=== PATIENT | female | born 1940 | race Caucasian/White ===

== ENCOUNTER 2019-06-29 10:25 | Inpatient (IN) | payer MEDICARE ==
[~2019-06-29] VITALS: Ht 157.5 cm; Wt 40.0 kg
[2019-06-29] MEDS ORDERED: ipratropium/albuterol 3ml nebule NEB ONE (10:55)
[2019-06-29] MEDS ORDERED: methylPREDNISolone sod succ 125mg/2ml vial IV ONE (10:55)
[2019-06-29 11:07] LABS: BASOPHILS # (AUTO) 0.1 X10'3 (0-0.2); BASOPHILS % (AUTO) 1.2 % (0-1); EOSINOPHILS # (AUTO) 0.3 X10'3 (0-0.9); EOSINOPHILS % (AUTO) 3.4 % (0-6); LYMPHOCYTES # (AUTO) 1.2 X10'3 (1.1-4.8); LYMPHOCYTES % (AUTO) 12.8 % (21-51); MEAN CORPUSCULAR HEMOGLOBIN 35.8 PG (27.0-31.0); MEAN CORPUSCULAR HGB CONC 34.3 g/dL (33.0-36.5); MEAN CORPUSCULAR VOLUME 104.5 FL (78-98); MEAN PLATELET VOLUME 7.8 FL (7.4-10.4); MONOCYTES % (AUTO) 10.7 % (2-12); NEUTROPHILS # (AUTO) 6.9 X10'3 (1.8-7.7); NEUTROPHILS % (AUTO) 71.9 % (42-75); PLATELET COUNT 423 X10'3 (140-440); RED BLOOD COUNT 3.63 X10'6 (4.20-5.60); RED CELL DISTRIBUTION WIDTH 15.1 % (11.5-14.5); WHITE BLOOD COUNT 9.5 X10'3 (4.5-11.0)
[2019-06-29 11:18] LABS: PARTIAL THROMBOPLASTIN TIME 27 SECONDS (22-32)
[2019-06-29 11:25] LABS: ALANINE AMINOTRANSFERASE 27 U/L (12-78); ALBUMIN 3.8 G/DL (3.4-5.0); ALBUMIN/GLOBULIN RATIO 0.8 (1.1-1.5); ALKALINE PHOSPHATASE 77 IU/L (46-116); ANION GAP 8 (8-16); ASPARTATE AMINO TRANSFERASE 37 U/L (10-37); BILIRUBIN,TOTAL 0.5 MG/DL (0.1-1.0); BLOOD UREA NITROGEN 28 MG/DL (7-18); BUN/CREATININE RATIO 39.4 (6.6-38.0); CHLORIDE 102 MMOL/L (99-107); CREATININE 0.71 MG/DL (0.40-0.90); GLUCOSE 113 MG/DL (70-104); POTASSIUM 3.7 MMOL/L (3.5-5.1); SODIUM 143 MMOL/L (135-145); TOTAL CARBON DIOXIDE 32.6 MMOL/L (24-32); TOTAL PROTEIN 8.3 G/DL (6.4-8.2); eGFR 80 ML/MIN
--- NOTE | 2019-06-29 11:51 | NUR ---
DAUGHTER IDALMIS MARSHALL. SHE LIVES OUT OF TOWN IN [place]. # .
[2019-06-29 12:11] LABS: ABG BASE EXCESS 4.4 mmol/L (-2.0-3.0); ABG HCO3 28.9 mmol/L (22.0-26.0); ABG OXYGEN SATURATION 96.1 % (95-98); ABG PCO2 (T) 42.5 mmHg (35.0-45.0); ABG PO2 (T) 85.5 mmHg (83-108); ALLEN'S TEST Positive; FCOHb 0.5 % (0.5-1.5); FLOW 3 L/min; FMetHb 0.1 % (0.3-1.12); FO2Hb 95.5 % (94-100); TOTAL HEMOGLOBIN 13.2 G/dl (12.0-16.0)
[2019-06-29] MEDS ORDERED: levoFLOXACIN-Levaquin 750MG/D5 150 ML IV ONE (12:35)
[2019-06-29] MEDS ORDERED: SIMV20TA PO (13:13)
[2019-06-29] MEDS ORDERED: ALBU18HF2 INH (13:13)
[2019-06-29] MEDS ORDERED: SERT50TA10 PO (13:13)
[2019-06-29] MEDS ORDERED: ALBU2.5V13 NEB (13:13)
[2019-06-29] MEDS ORDERED: LISI30TA4 PO (13:13)
[2019-06-29] MEDS ORDERED: BUDE10.2 INH (13:13)
[2019-06-29] MEDS ORDERED: TRAZ-219 PO (13:13)
[2019-06-29] MEDS ORDERED: diphenhydrAMINE 50 mg/ml inj IV ONE (13:30)
--- NOTE | 2019-06-29 13:31 | NUR ---
PT REPORTS THAT IV SITE IS "ITCHY" LEVAQUIN WAS STOPPED. DR OBRIEN NOTIFIED. NEW ORDERS 25MG BENADRYL THEN START THE IV ANTIBIOTICS AGAIN.
[2019-06-29] MEDS ORDERED: ondansetron/PF 4mg/2ml inj IV PRN (13:40)
[2019-06-29] MEDS ORDERED: magnesium hydroxide 30ml (MOM) UD suspension PO PRN (13:40)
[2019-06-29] MEDS ORDERED: acetaminophen 325mg tablet PO PRN ×2 (13:40)
[2019-06-29] MEDS ORDERED: ipratropium/albuterol 3ml nebule NEB PRN (13:40)
[2019-06-29] MEDS ORDERED: mag hydrox/Alum hydrox/simeth 30ml oral suspension PO PRN (13:40)
[2019-06-29] MEDS ORDERED: methylPREDNISolone sod succ 125mg/2ml vial IV SCH (14:00)
--- NOTE | 2019-06-29 15:41 | NUR ---
[facility] WAS CONTACTED FOR THE SCHEDULED BREATHING TREATMENT, THEY WILL ADMINISTER IT SHORLTY
--- NOTE | 2019-06-29 15:44 | NUR ---
HOSPITALIST AT THE BEDSIDE
[2019-06-29] MEDS: ipratropium/albuterol 3ml nebule NEB SCH ×2 (15:54→19:56)
--- NOTE | 2019-06-29 16:45 | NUR ---
Patient in room [facility]. I have received report from Paresh ARANA and had the opportunity to ask questions and assume patient care.
[2019-06-29] MEDS ORDERED: LORazepam 0.5 MG tablet PO PRN (17:10)
[2019-06-29 17:13] VITALS: BP 152/92
--- NOTE | 2019-06-29 17:15 | NUR ---
Patient arived to floor was familiarized with room, Patient was given call light and welcome pack. Patient vitals taken at time of arriving to floor and patient was saturating 94% on 2L and heart rate slightly tachy. Patient stated "I feel better than I did".
--- NOTE | 2019-06-29 18:15 | NUR ---
Problems reprioritized. Patient report given, questions answered & plan of care reviewed with Ana ARANA.
--- NOTE | 2019-06-29 18:46 | NUR ---
Received report from Cooper RN pt is awake and alert on 2L of O2 via NC in no apparent distress
[2019-06-29 19:15] VITALS: BP 139/62
[2019-06-29] MEDS: atorvastatin 10mg tablet PO SCH (20:47)
[2019-06-29] MEDS: traZODone 50mg tablet PO SCH (20:47)
[2019-06-29] MEDS: methylPREDNISolone sod succ 125mg/2ml vial IV SCH (20:48)
[2019-06-29] MEDS ORDERED: temazepam 15mg capsule PO PRN (21:00)
[2019-06-30] VITALS: BP 139/71
[2019-06-30] MEDS: ipratropium/albuterol 3ml nebule NEB SCH ×6 (00:01→23:04)
[2019-06-30] MEDS: methylPREDNISolone sod succ 125mg/2ml vial IV SCH ×3 (02:17→13:22)
[2019-06-30 04:29] LABS: BASOPHILS % (AUTO) 0.1 % (0-1); EOSINOPHILS % (AUTO) 0.1 % (0-6); HEMOGLOBIN 12.4 g/dl (12.0-16.0); LYMPHOCYTES # (AUTO) 0.3 X10'3 (1.1-4.8); MEAN CORPUSCULAR HEMOGLOBIN 36.2 PG (27.0-31.0); MEAN CORPUSCULAR HGB CONC 34.5 g/dL (33.0-36.5); MEAN CORPUSCULAR VOLUME 105.1 FL (78-98); MEAN PLATELET VOLUME 8.4 FL (7.4-10.4); MONOCYTES # (AUTO) 0.2 X10'3 (0-0.9); MONOCYTES % (AUTO) 5.1 % (2-12); NEUTROPHILS # (AUTO) 3.5 X10'3 (1.8-7.7); NEUTROPHILS % (AUTO) 87.7 % (42-75); PLATELET COUNT 365 X10'3 (140-440); RED BLOOD COUNT 3.42 X10'6 (4.20-5.60); RED CELL DISTRIBUTION WIDTH 14.9 % (11.5-14.5)
[2019-06-30 04:48] LABS: ALANINE AMINOTRANSFERASE 23 U/L (12-78); ALBUMIN 3.3 G/DL (3.4-5.0); ALBUMIN/GLOBULIN RATIO 0.8 (1.1-1.5); ALKALINE PHOSPHATASE 64 IU/L (46-116); ANION GAP 8 (8-16); ASPARTATE AMINO TRANSFERASE 24 U/L (10-37); BILIRUBIN,TOTAL 0.4 MG/DL (0.1-1.0); BLOOD UREA NITROGEN 31 MG/DL (7-18); BUN/CREATININE RATIO 36.5 (6.6-38.0); CALCIUM 9.2 MG/DL (8.5-10.1); CHLORIDE 100 MMOL/L (99-107); CREATININE 0.85 MG/DL (0.40-0.90); GLUCOSE 162 MG/DL (70-104); POTASSIUM 3.8 MMOL/L (3.5-5.1); SODIUM 138 MMOL/L (135-145); TOTAL CARBON DIOXIDE 30.3 MMOL/L (24-32); TOTAL PROTEIN 7.4 G/DL (6.4-8.2); eGFR 65 ML/MIN
--- NOTE | 2019-06-30 06:40 | NUR ---
gave report to Leslie ARANA pt is resting on .5L of O2 via NC in no apparent distress
--- NOTE | 2019-06-30 06:42 | NUR ---
Patient in room [facility]. I have received report from SUMIT Perez and had the opportunity to ask questions and assume patient care.
[2019-06-30 07:22] VITALS: BP 154/74
[2019-06-30] MEDS: CefTRIAXone/D5W-Rocephin 1gm 50 ML IV SCH (07:52)
[2019-06-30] MEDS: sertraline 50mg tablet PO SCH (07:52)
[2019-06-30] MEDS: enoxaparin 40mg/0.4ml syringe SQ SCH (07:53)
[2019-06-30] MEDS ORDERED: levoFLOXACIN-Levaquin 500mg/D5 100 ML IV SCH (08:00)
[2019-06-30] MEDS ORDERED: lisinopril 10 MG tablet PO SCH (08:00)
[2019-06-30 11:14] VITALS: BP 131/63
--- NOTE | 2019-06-30 15:34 | NUR ---
Malnutrition consult: Pt seen at bedside reports UBW 110 lbs with wt loss to 90-95 lbs in the last 6 months d/t increased stress r/t recent loss of her father. No wt hx in records however if pt truly lost this weight this is severe wt loss of 13-18% in 6 months. Pt endorses a good appetite which is evident with documented average 75% PO intake on regular diet. Pt with no decrease in muscle strength, no edema, and no visible fat or muscle wasting. Pt currently lacks a minimum of two criteria for malnutrition. Pt denies any food allergies, difficulty chewing/swallowing, or constipation/diarrhea. LBM 06/29. Pt provided with RD contact information. Will continue to follow. Addendum: 06/30/19 at [address] Amended: Links added.
--- NOTE | 2019-06-30 18:33 | NUR ---
Problems reprioritized. Patient report given, questions answered & plan of care reviewed with SUMIT Perez.
--- NOTE | 2019-06-30 18:42 | NUR ---
Received report from Leslie ARANA pt is awake and alert on RA, speaking on the phone in no apparent distress, call light and items of freq use within reach.
[2019-06-30 19:00] VITALS: BP 135/66
[2019-06-30] MEDS: traZODone 50mg tablet PO SCH (20:48)
[2019-06-30] MEDS: diltiazem 30mg tablet PO SCH (20:48)
[2019-06-30] MEDS: atorvastatin 10mg tablet PO SCH (20:48)
[2019-07-01 00:14] VITALS: BP 109/58
[2019-07-01] MEDS: diltiazem 30mg tablet PO SCH ×2 (02:25→07:12)
[2019-07-01 03:34] LABS: BASOPHILS % (AUTO) 0.1 % (0-1); EOSINOPHILS % (AUTO) 0 % (0-6); HEMATOCRIT 32.8 % (35.0-45.0); HEMOGLOBIN 11.1 g/dl (12.0-16.0); LYMPHOCYTES # (AUTO) 0.6 X10'3 (1.1-4.8); LYMPHOCYTES % (AUTO) 4.4 % (21-51); MEAN CORPUSCULAR HEMOGLOBIN 35.7 PG (27.0-31.0); MEAN CORPUSCULAR HGB CONC 33.9 g/dL (33.0-36.5); MEAN CORPUSCULAR VOLUME 105.4 FL (78-98); MEAN PLATELET VOLUME 8.2 FL (7.4-10.4); MONOCYTES # (AUTO) 1.1 X10'3 (0-0.9); MONOCYTES % (AUTO) 7.5 % (2-12); NEUTROPHILS # (AUTO) 12.5 X10'3 (1.8-7.7); PLATELET COUNT 335 X10'3 (140-440); RED BLOOD COUNT 3.12 X10'6 (4.20-5.60); RED CELL DISTRIBUTION WIDTH 14.8 % (11.5-14.5); WHITE BLOOD COUNT 14.2 X10'3 (4.5-11.0)
[2019-07-01 04:04] LABS: ALANINE AMINOTRANSFERASE 17 U/L (12-78); ALBUMIN/GLOBULIN RATIO 0.8 (1.1-1.5); ALKALINE PHOSPHATASE 52 IU/L (46-116); ANION GAP 8 (8-16); ASPARTATE AMINO TRANSFERASE 19 U/L (10-37); BILIRUBIN,TOTAL 0.2 MG/DL (0.1-1.0); BLOOD UREA NITROGEN 31 MG/DL (7-18); BUN/CREATININE RATIO 36.5 (6.6-38.0); CALCIUM 8.6 MG/DL (8.5-10.1); CHLORIDE 103 MMOL/L (99-107); CREATININE 0.85 MG/DL (0.40-0.90); GLUCOSE 139 MG/DL (70-104); POTASSIUM 3.2 MMOL/L (3.5-5.1); SODIUM 140 MMOL/L (135-145); TOTAL CARBON DIOXIDE 28.6 MMOL/L (24-32); TOTAL PROTEIN 6.6 G/DL (6.4-8.2); eGFR 65 ML/MIN
--- NOTE | 2019-07-01 06:27 | NUR ---
Problems reprioritized. Patient report given, questions answered & plan of care reviewed with radha ARANA.
[2019-07-01 06:53] VITALS: BP 103/41
[2019-07-01] MEDS: sertraline 50mg tablet PO SCH (07:12)
[2019-07-01] MEDS: enoxaparin 40mg/0.4ml syringe SQ SCH (07:13)
[2019-07-01] MEDS: CefTRIAXone/D5W-Rocephin 1gm 50 ML IV SCH (07:13)
[2019-07-01] MEDS ORDERED: predniSONE 20 mg tablet PO SCH (08:00)
[2019-07-01] MEDS: ipratropium/albuterol 3ml nebule NEB SCH ×2 (08:21→10:45)
[2019-07-01] MEDS ORDERED: DILT30TA5 PO (10:46)
[2019-07-01] MEDS ORDERED: ATOR10TA PO (10:46)
[2019-07-01 11:00] VITALS: BP 119/74
[2019-07-01] MEDS ORDERED: AZIT500T PO (11:08)
[2019-07-01] MEDS ORDERED: potassium Cl 20 mEq SR tablet PO STA (11:52)
--- NOTE | 2019-07-01 13:37 | NUR ---
PT DISCHARGED HOME WITH S/O. IV TAKEN OUT, NO TELE. ALL BELONGINGS TAKEN FROM ROOM. PT APPROPRIATE FOR DISCHARGE. TAKEN DOWN TO VEHICLE WITH AIDE. MEDS CALLED INTO PHARMACY.
[2019-07-01] MEDS ORDERED: lactobacillus rhamnosus 10,000 MMU CELLS/CAPSULE PO SCH (20:00)
== END 2019-07-01 12:30 | disposition home or self-care (01) | DRG 189 ==
LOC: ER 10:26 → ED HOLD 13:38 → SUR 3N 16:51 → OBSVTOIN 06-30 09:55
PROVIDERS: ADMIT Family Medicine; ATTEND Internal Medicine
DX: J96.01 Acute respiratory failure with hypoxia (principal); J44.1 Chronic obstructive pulmonary disease with (acute) exacerbation; E78.5 Hyperlipidemia, unspecified; F32.9 Major depressive disorder, single episode, unspecified; F41.1 Generalized anxiety disorder; G47.00 Insomnia, unspecified; I11.0 Hypertensive heart disease with heart failure; Z87.19 Personal history of other diseases of the digestive system; Z90.710 Acquired absence of both cervix and uterus; Z87.891 Personal history of nicotine dependence
CPT/HCPCS: 36415; 36600; 71045; 80053; 82803; 83880; 84439; 84443; 84484; 85018; 85025; 85610; 85730; 87081; 93005; 94640; 94667; 94668; 94760; 96365; 96375; 99285; G0378; J0696; J1200; J1650; J1956; J2930; J7512

== ENCOUNTER 2022-01-30 18:49 | Inpatient (IN) | payer MEDICARE ==
[~2022-01-30] VITALS: Ht 160 cm; Wt 45.5 kg
[~2022-01-30 18:49] MED LIST: ALBU8.5H17 IH; ALEN70TA80 PO; APIX2.5T PO; DILT-103 PO; FLUT1AER PO; HYDR25TA4 PO; LACT1CAP26 PO; METO-384 PO; POTA-82 PO; TRAZ-256 PO
[2022-01-30 19:30] LABS: BASOPHILS % (AUTO) 0.8 % (0-1); EOSINOPHILS # (AUTO) 0.2 X10'3 (0-0.9); HEMATOCRIT 29.6 % (35.0-45.0); HEMOGLOBIN 10.1 g/dl (12.0-16.0); LYMPHOCYTES # (AUTO) 0.8 X10'3 (1.1-4.8); LYMPHOCYTES % (AUTO) 16.6 % (21-51); MEAN CORPUSCULAR HEMOGLOBIN 36.7 PG (27.0-31.0); MEAN CORPUSCULAR HGB CONC 34.3 g/dL (33.0-36.5); MEAN CORPUSCULAR VOLUME 107.1 FL (78-98); MEAN PLATELET VOLUME 7.3 FL (7.4-10.4); MONOCYTES # (AUTO) 0.6 X10'3 (0-0.9); MONOCYTES % (AUTO) 10.9 % (2-12); NEUTROPHILS # (AUTO) 3.5 X10'3 (1.8-7.7); NEUTROPHILS % (AUTO) 67.7 % (42-75); PLATELET COUNT 451 X10'3 (140-440); RED BLOOD COUNT 2.76 X10'6 (4.20-5.60); RED CELL DISTRIBUTION WIDTH 18.5 % (11.5-14.5); WHITE BLOOD COUNT 5.1 X10'3 (4.5-11.0)
[2022-01-30 19:54] LABS: ALANINE AMINOTRANSFERASE 17 U/L (12-78); ALBUMIN/GLOBULIN RATIO 0.8 (1.1-1.5); ALKALINE PHOSPHATASE 55 IU/L (46-116); ANION GAP 11 (8-16); ASPARTATE AMINO TRANSFERASE 52 U/L (10-37); BILIRUBIN,TOTAL 0.2 MG/DL (0.1-1.0); BLOOD UREA NITROGEN 17 MG/DL (7-18); BUN/CREATININE RATIO 16.5 (6.6-38.0); CALCIUM 8.3 MG/DL (8.5-10.1); CHLORIDE 99 MMOL/L (99-107); CREATININE 1.03 MG/DL (0.40-0.90); GLUCOSE 91 MG/DL (70-104); SODIUM 141 MMOL/L (135-145); TOTAL CARBON DIOXIDE 31.4 MMOL/L (24-32); TOTAL PROTEIN 6.8 G/DL (6.4-8.2); eGFR 52 ML/MIN
[2022-01-30 19:59] LABS: POTASSIUM 2.5 MMOL/L (3.5-5.1)
[2022-01-30] MEDS ORDERED: normal saline 1000ml 1,000 ML IV ONE ×2 (21:00→23:10)
[2022-01-30 21:43] LABS: MAGNESIUM 1.7 MG/DL (1.5-2.4)
[2022-01-30] MEDS ORDERED: POTASSIUM BICARB 20meq eff tab 20 MEQ TABLET.EFF PO ONE (22:25)
[2022-01-30] MEDS ORDERED: ondansetron/PF 4mg/2ml inj IV ONE (23:10)
[2022-01-31] VITALS (8 sets, daily range): BP systolic 122–164; BP diastolic 63–84
[2022-01-31 02:16] LABS: CLARITY,URINE CLEAR (Clear); COLOR,URINE YELLOW (Yellow); GLUCOSE, URINE NEGATIVE (Neg); KETONES,URINE NEGATIVE (Neg); LEUKOCYTE ESTERASE ,URINE NEGATIVE (Neg); NITRITES, URINE NEGATIVE (Neg); OCCULT BLOOD,URINE TRACE-INTACT (Neg); PH,URINE 6.5 (4.8-8.0); PROTEIN,URINE NEGATIVE (Neg); UROBILINOGEN,URINE 0.2 E.U/dL (0.2-1.0)
[2022-01-31 02:25] LABS: UA COLLECTION TYPE STRAIGHT CATH
[2022-01-31] MEDS ORDERED: magnesium 2GM in 50ml NS 50 ML IV PRN (02:25)
[2022-01-31] MEDS ORDERED: potassium CL 10mEq/100ml bag 100 ML IV PRN (02:25)
[2022-01-31] MEDS ORDERED: mag hydrox/Alum hydrox/simeth 30ml oral suspension PO PRN (02:25)
[2022-01-31] MEDS ORDERED: POTASSIUM BICARB 20meq eff tab 20 MEQ TABLET.EFF PO PRN (02:25)
[2022-01-31] MEDS ORDERED: magnesium Cl slow-release 64mg tablet PO PRN (02:25)
[2022-01-31] MEDS ORDERED: acetaminophen 325mg tablet PO PRN ×2 (02:25)
[2022-01-31] MEDS ORDERED: morphine 2 MG/ML inj. syringe IV PRN ×2 (02:25)
[2022-01-31] MEDS ORDERED: magnesium 4gm in 100ml NS 100 ML IV PRN (02:25)
[2022-01-31] MEDS ORDERED: magnesium hydroxide 30ml (MOM) UD suspension PO PRN (02:25)
[2022-01-31] MEDS ORDERED: ondansetron/PF 4mg/2ml inj IV PRN (02:25)
[2022-01-31 02:27] LABS: WBC,URINE NONE SEEN /HPF (0-4)
[2022-01-31 02:28] LABS: BACTERIA,URINE NONE SEEN /HPF (Neg); RBC,URINE 0-2 /HPF (0-2); SQUAMOUS EPITHELIAL CELL,UR FEW /LPF (FEW)
--- NOTE | 2022-01-31 04:00 | NUR ---
Patient in room [facility]. I have received report from SUMIT Bertrand and had the opportunity to ask questions and assume patient care.
[2022-01-31] MEDS: dextrose 5%-1/2 normal saline 1,000 ML IV SCH ×3 (04:05→20:02)
[2022-01-31] MEDS ORDERED: ASPI-1144 PO (06:04)
[2022-01-31] MEDS ORDERED: ERGO500056 PO (06:04)
[2022-01-31] MEDS ORDERED: FERR325T29 PO (06:04)
[2022-01-31 06:22] LABS: MAGNESIUM 1.5 MG/DL (1.5-2.4); PHOSPHORUS 2.9 MG/DL (2.3-4.5); POTASSIUM 4.2 MMOL/L (3.5-5.1)
--- NOTE | 2022-01-31 06:45 | NUR ---
Problems reprioritized. Patient report given, questions answered & plan of care reviewed with SUMIT Camarena.
[2022-01-31] MEDS: K and/or MAG REPLACEMENT MC SCH ×2 (07:50→20:00)
[2022-01-31] MEDS: docusate sod 100mg capsule PO SCH ×2 (07:50→20:00)
[2022-01-31] MEDS ORDERED: enoxaparin 40mg/0.4ml syringe SUBCUT SCH (08:00)
--- NOTE | 2022-01-31 09:38 | NUR ---
Noted pt with a low BMI of 17.7 however current documented wt isn't scaled and no scaled wt hx in EMR. Pending documentation of PO intake this admit however pt historically eats well during admit. Pt denied wt loss or decreased appetite per malnutrition risk screen with RN. No documented significant decrease in muscle strength or edema. Pt currently lacks a minimum of two criteria for malnutrition. Will continue to follow. Addendum: 01/31/22 at [address] Amended: Links added.
[2022-01-31] MEDS ORDERED: traZODone 50mg tablet PO PRN (09:50)
[2022-01-31] MEDS ORDERED: non-formulary drug (Alendronate Sodium 1 TAB) PO SCH (09:50)
[2022-01-31] MEDS ORDERED: magnesium 4gm in 100ml NS 100 ML IV ONE (10:45)
[2022-01-31 12:36] LABS: HEMOGLOBIN A1C 5.1 % (4.5-6.2)
[2022-01-31 12:41] LABS: % IRON SATURATION 92 % (11-46); IRON 296 UG/DL (49-151); TOTAL IRON BINDING CAPACITY 322 UG/DL (259-388)
[2022-01-31 12:50] LABS: CHOLESTEROL 211 MG/DL (0-200); FERRITIN 80 NG/ML (8-252); HDL CHOLESTEROL 103 MG/DL (35-60); LDL CHOLESTEROL 88 MG/DL (50-100); TRIGLYCERIDES 97 MG/DL (20-135)
[2022-01-31] MEDS: albuterol 2.5 MG/3 ML nebule NEB SCH ×2 (16:09→19:30)
--- NOTE | 2022-01-31 18:10 | NUR ---
Patient in room [facility]. I have received report from SUMIT Nelson and had the opportunity to ask questions and assume patient care.
--- NOTE | 2022-01-31 19:00 | NUR ---
Report given to Ceci ARANA, patient resting comfortably at this time, ate dinner.
[2022-01-31] MEDS: budesonide 0.5mg/2ml UD nebule IH SCH (19:20)
[2022-01-31] MEDS: lactobacillus rhamnosus 10,000 MMU CELLS/CAPSULE PO SCH (20:06)
[2022-01-31] MEDS: apixaban 2.5mg tablet PO SCH (20:06)
[2022-02-01] MEDS: albuterol 2.5 MG/3 ML nebule NEB SCH ×4 (01:48→19:31)
[2022-02-01 05:00] VITALS: BP 128/46
[2022-02-01 06:04] LABS: BASOPHILS % (AUTO) 0.6 % (0-1); EOSINOPHILS # (AUTO) 0.2 X10'3 (0-0.9); EOSINOPHILS % (AUTO) 3.3 % (0-6); HEMATOCRIT 26.3 % (35.0-45.0); HEMOGLOBIN 8.7 g/dl (12.0-16.0); LYMPHOCYTES # (AUTO) 0.8 X10'3 (1.1-4.8); LYMPHOCYTES % (AUTO) 14.4 % (21-51); MEAN CORPUSCULAR HEMOGLOBIN 35.3 PG (27.0-31.0); MEAN CORPUSCULAR HGB CONC 32.9 g/dL (33.0-36.5); MEAN CORPUSCULAR VOLUME 107.5 FL (78-98); MEAN PLATELET VOLUME 7.9 FL (7.4-10.4); MONOCYTES # (AUTO) 0.6 X10'3 (0-0.9); NEUTROPHILS # (AUTO) 3.7 X10'3 (1.8-7.7); NEUTROPHILS % (AUTO) 69.7 % (42-75); PLATELET COUNT 351 X10'3 (140-440); RED BLOOD COUNT 2.45 X10'6 (4.20-5.60); RED CELL DISTRIBUTION WIDTH 18.4 % (11.5-14.5); WHITE BLOOD COUNT 5.3 X10'3 (4.5-11.0)
[2022-02-01 06:23] LABS: ALBUMIN 2.4 G/DL (3.4-5.0); ANION GAP 5 (8-16); BLOOD UREA NITROGEN 8 MG/DL (7-18); BUN/CREATININE RATIO 10.1 (6.6-38.0); CALCIUM 7.8 MG/DL (8.5-10.1); CHLORIDE 101 MMOL/L (99-107); CREATININE 0.79 MG/DL (0.40-0.90); GLUCOSE 133 MG/DL (70-104); MAGNESIUM 2.4 MG/DL (1.5-2.4); PHOSPHORUS 2.9 MG/DL (2.3-4.5); SODIUM 139 MMOL/L (135-145); TOTAL CARBON DIOXIDE 32.7 MMOL/L (24-32); eGFR 70 ML/MIN
[2022-02-01 06:25] LABS: POTASSIUM 2.9 MMOL/L (3.5-5.1)
[2022-02-01] MEDS: POTASSIUM BICARB 20meq eff tab 20 MEQ TABLET.EFF PO PRN ×3 (06:31→16:11)
--- NOTE | 2022-02-01 06:49 | NUR ---
Problems reprioritized. Patient report given, questions answered & plan of care reviewed with SUMIT Santo.
--- NOTE | 2022-02-01 06:57 | NUR ---
Patient in room [facility]. I have received report from Shavon ARANA and had the opportunity to ask questions and assume patient care.
[2022-02-01] MEDS: HYDROchlorothiazide 25mg tablet PO SCH (07:48)
[2022-02-01] MEDS: aspirin 81mg tab.chew PO SCH (07:48)
[2022-02-01] MEDS: docusate sod 100mg capsule PO SCH ×2 (07:48→19:23)
[2022-02-01] MEDS: lactobacillus rhamnosus 10,000 MMU CELLS/CAPSULE PO SCH ×2 (07:48→19:23)
[2022-02-01] MEDS: ferrous sulfate 325mg tablet PO SCH (07:48)
[2022-02-01] MEDS: diltiazem CD 120mg capsule (once-daily) PO SCH (07:49)
[2022-02-01] MEDS: metoprolol succinate 25mg (24-HOUR) SR. Tablet PO SCH (07:49)
[2022-02-01] MEDS: apixaban 2.5mg tablet PO SCH ×2 (07:50→19:23)
[2022-02-01 07:51] VITALS: BP 153/77
[2022-02-01] MEDS: K and/or MAG REPLACEMENT MC SCH ×2 (08:00→20:00)
[2022-02-01] MEDS: dextrose 5%-1/2 normal saline 1,000 ML IV SCH ×2 (09:10→19:23)
[2022-02-01] MEDS: budesonide 0.5mg/2ml UD nebule IH SCH ×2 (09:43→19:30)
[2022-02-01 14:00] VITALS: BP_SYST 112; BP_SYST 152; BP_SYST 164; BP_DIAS 34; BP_DIAS 47; BP_DIAS 76
[2022-02-01 18:00] VITALS: BP 135/72
--- NOTE | 2022-02-01 18:36 | NUR ---
Patient in room [facility]. I have received report from france Santo and had the opportunity to ask questions and assume patient care.
[2022-02-01 20:00] VITALS: BP_SYST 126; BP_SYST 127; BP_SYST 156; BP_DIAS 63; BP_DIAS 64; BP_DIAS 68
[2022-02-01 22:00] VITALS: BP 156/64
[2022-02-02] MEDS: albuterol 2.5 MG/3 ML nebule NEB SCH ×2 (01:34→07:29)
[2022-02-02] MEDS: dextrose 5%-1/2 normal saline 1,000 ML IV SCH (05:12)
[2022-02-02 06:00] VITALS: BP 137/67
--- NOTE | 2022-02-02 06:12 | NUR ---
Problems reprioritized. Patient report given, questions answered & plan of care reviewed with SUMIT SCHULZ.
[2022-02-02 06:38] LABS: ALBUMIN 2.6 G/DL (3.4-5.0); ANION GAP 4 (8-16); BLOOD UREA NITROGEN 5 MG/DL (7-18); BUN/CREATININE RATIO 6.6 (6.6-38.0); CALCIUM 8.3 MG/DL (8.5-10.1); CHLORIDE 101 MMOL/L (99-107); CREATININE 0.76 MG/DL (0.40-0.90); GLUCOSE 106 MG/DL (70-104); MAGNESIUM 1.9 MG/DL (1.5-2.4); PHOSPHORUS 2.7 MG/DL (2.3-4.5); POTASSIUM 4.3 MMOL/L (3.5-5.1); SODIUM 138 MMOL/L (135-145); TOTAL CARBON DIOXIDE 33.4 MMOL/L (24-32); eGFR 73 ML/MIN
[2022-02-02 06:42] LABS: BASOPHILS % (AUTO) 0.7 % (0-1); EOSINOPHILS # (AUTO) 0.4 X10'3 (0-0.9); EOSINOPHILS % (AUTO) 6.6 % (0-6); HEMATOCRIT 26.2 % (35.0-45.0); HEMOGLOBIN 8.9 g/dl (12.0-16.0); LYMPHOCYTES # (AUTO) 0.9 X10'3 (1.1-4.8); LYMPHOCYTES % (AUTO) 14.6 % (21-51); MEAN CORPUSCULAR HEMOGLOBIN 36.8 PG (27.0-31.0); MEAN CORPUSCULAR HGB CONC 33.9 g/dL (33.0-36.5); MEAN CORPUSCULAR VOLUME 108.6 FL (78-98); MONOCYTES # (AUTO) 0.7 X10'3 (0-0.9); MONOCYTES % (AUTO) 10.8 % (2-12); NEUTROPHILS # (AUTO) 4.1 X10'3 (1.8-7.7); NEUTROPHILS % (AUTO) 67.3 % (42-75); PLATELET COUNT 367 X10'3 (140-440); RED BLOOD COUNT 2.42 X10'6 (4.20-5.60); RED CELL DISTRIBUTION WIDTH 18.5 % (11.5-14.5); WHITE BLOOD COUNT 6.1 X10'3 (4.5-11.0)
[2022-02-02] MEDS: budesonide 0.5mg/2ml UD nebule IH SCH (07:29)
[2022-02-02] MEDS: lactobacillus rhamnosus 10,000 MMU CELLS/CAPSULE PO SCH (07:51)
[2022-02-02] MEDS: docusate sod 100mg capsule PO SCH (07:51)
[2022-02-02] MEDS: aspirin 81mg tab.chew PO SCH (07:51)
[2022-02-02] MEDS: metoprolol succinate 25mg (24-HOUR) SR. Tablet PO SCH (07:51)
[2022-02-02] MEDS: ferrous sulfate 325mg tablet PO SCH (07:51)
[2022-02-02] MEDS: HYDROchlorothiazide 25mg tablet PO SCH (07:52)
[2022-02-02] MEDS: diltiazem CD 120mg capsule (once-daily) PO SCH (07:52)
[2022-02-02] MEDS: apixaban 2.5mg tablet PO SCH (07:52)
[2022-02-02] MEDS: K and/or MAG REPLACEMENT MC SCH (07:53)
== END 2022-02-02 11:00 | disposition home or self-care (01) | DRG 641 ==
LOC: ER 18:49 → ED HOLD 01-31 02:30 → ORTHO 4S 01-31 03:35
PROVIDERS: ADMIT Internal Medicine; ATTEND Family Medicine
DX: E87.6 Hypokalemia (principal); J96.11 Chronic respiratory failure with hypoxia; R55 Syncope and collapse; Z20.822 Contact with and (suspected) exposure to COVID-19; E78.00 Pure hypercholesterolemia, unspecified; I10 Essential (primary) hypertension; I48.0 Paroxysmal atrial fibrillation; R19.7 Diarrhea, unspecified; D50.9 Iron deficiency anemia, unspecified; J44.9 Chronic obstructive pulmonary disease, unspecified; Z79.01 Long term (current) use of anticoagulants; Z79.82 Long term (current) use of aspirin; Z79.899 Other long term (current) drug therapy; Z87.891 Personal history of nicotine dependence; Z90.710 Acquired absence of both cervix and uterus; Z88.8 Allergy status to other drugs, medicaments and biological substances; Z88.2 Allergy status to sulfonamides; Z83.3 Family history of diabetes mellitus
CPT/HCPCS: 36415; 71045; 80048; 80053; 80061; 81001; 82728; 83036; 83540; 83550; 83735; 83880; 84100; 84132; 84443; 84484; 85025; 87081; 87502; 87503; 87635; 94640; 94760; 97116; 97530; 99285; C9803; G0378; J1650; J2405; J3475; J7030; J7042

== ENCOUNTER 2022-04-19 19:27 | Emergency (ER) | payer MEDICARE ==
[~2022-04-19] VITALS: Ht 160 cm; Wt 63.6 kg
[~2022-04-19 19:27] MED LIST changes: -ALBU8.5H17 IH; +ASPI-1144 PO; +ERGO500056 PO; +FERR325T29 PO; -HYDR25TA4 PO; -POTA-82 PO
[2022-04-19 20:40] LABS: BASOPHILS # (AUTO) 0.1 X10'3 (0-0.2); BASOPHILS % (AUTO) 0.9 % (0-1); EOSINOPHILS # (AUTO) 0.1 X10'3 (0-0.9); EOSINOPHILS % (AUTO) 2.6 % (0-6); HEMATOCRIT 23.4 % (35.0-45.0); HEMOGLOBIN 7.8 g/dl (12.0-16.0); LYMPHOCYTES # (AUTO) 1.7 X10'3 (1.1-4.8); LYMPHOCYTES % (AUTO) 31.9 % (21-51); MEAN CORPUSCULAR HEMOGLOBIN 36.2 PG (27.0-31.0); MEAN CORPUSCULAR HGB CONC 33.5 g/dL (33.0-36.5); MEAN CORPUSCULAR VOLUME 108.2 FL (78-98); MEAN PLATELET VOLUME 6.9 FL (7.4-10.4); MONOCYTES # (AUTO) 0.7 X10'3 (0-0.9); MONOCYTES % (AUTO) 12.8 % (2-12); NEUTROPHILS # (AUTO) 2.8 X10'3 (1.8-7.7); NEUTROPHILS % (AUTO) 51.8 % (42-75); PLATELET COUNT 357 X10'3 (140-440); RED BLOOD COUNT 2.16 X10'6 (4.20-5.60); WHITE BLOOD COUNT 5.4 X10'3 (4.5-11.0)
[2022-04-19 20:53] LABS: ALANINE AMINOTRANSFERASE 17 U/L (12-78); ALBUMIN 3.1 G/DL (3.4-5.0); ALBUMIN/GLOBULIN RATIO 0.8 (1.1-1.5); ALKALINE PHOSPHATASE 63 IU/L (46-116); ANION GAP 11 (8-16); ASPARTATE AMINO TRANSFERASE 38 U/L (10-37); BILIRUBIN,TOTAL 0.1 MG/DL (0.1-1.0); BLOOD UREA NITROGEN 18 MG/DL (7-18); BUN/CREATININE RATIO 17.6 (6.6-38.0); CALCIUM 8.2 MG/DL (8.5-10.1); CHLORIDE 89 MMOL/L (99-107); CREATININE 1.02 MG/DL (0.40-0.90); GLUCOSE 96 MG/DL (70-104); SODIUM 133 MMOL/L (135-145); TOTAL CARBON DIOXIDE 32.6 MMOL/L (24-32); TOTAL PROTEIN 6.8 G/DL (6.4-8.2); eGFR 52 ML/MIN
[2022-04-19 20:58] LABS: ETHANOL 0.346 GM/DL (0.0-0.010); POTASSIUM 3.2 MMOL/L (3.5-5.1)
[2022-04-19 21:12] LABS: ANISOCYTOSIS 3+; PLATELET ESTIMATE NORMAL
[2022-04-19 21:13] LABS: TARGET CELLS FEW
--- NOTE | 2022-04-19 22:22 | NUR ---
PT VERY POOR HISTORIAN. ETOH ON BOARD. STATES NO COMPLAINTS JUST "WANTS TO GO HOME". HX RECALLED
[2022-04-19] MEDS ORDERED: normal saline 1000ML IV soln IVB ONE (22:55)
[2022-04-19] MEDS ORDERED: ALBU2.5V10 (23:26)
[2022-04-19] MEDS ORDERED: HYDR25TA4 PO (23:26)
[2022-04-20] MEDS ORDERED: potassium Cl 20 mEq SR tablet PO STA (00:54)
[2022-04-20 01:15] VITALS: BP 111/45
== END 2022-04-20 01:23 | disposition home or self-care (01) ==
LOC: ER 19:27
DX: F10.129 Alcohol abuse with intoxication, unspecified (principal); D64.9 Anemia, unspecified; E87.6 Hypokalemia; E78.00 Pure hypercholesterolemia, unspecified; J44.9 Chronic obstructive pulmonary disease, unspecified; Z88.1 Allergy status to other antibiotic agents; Z90.710 Acquired absence of both cervix and uterus
CPT/HCPCS: 36415; 71045; 80053; 80320; 82140; 82948; 84484; 85008; 85025; 93005; 96360; 99285; J7030

== ENCOUNTER 2022-11-15 12:42 | Emergency (ER) | payer MEDICARE, MEDICAID ==
[~2022-11-15] VITALS: Ht 160 cm; Wt 51.8 kg
[~2022-11-15 12:42] MED LIST changes: +ALBU2.5V10; -ALEN70TA80 PO; -DILT-103 PO; +HYDR25TA4 PO; -LACT1CAP26 PO; -METO-384 PO
[2022-11-15] MEDS ORDERED: ipratropium/albuterol 3ml nebule NEB ONE (14:30)
[2022-11-15] MEDS ORDERED: predniSONE 20 mg tablet PO ONE (14:30)
[2022-11-15 14:48] LABS: BASOPHILS % (AUTO) 0.3 % (0-1); EOSINOPHILS % (AUTO) 0.1 % (0-6); HEMATOCRIT 32.4 % (35.0-45.0); LYMPHOCYTES # (AUTO) 0.5 X10'3 (1.1-4.8); LYMPHOCYTES % (AUTO) 3.6 % (21-51); MEAN CORPUSCULAR HEMOGLOBIN 33.2 PG (27.0-31.0); MEAN CORPUSCULAR HGB CONC 33.9 g/dL (33.0-36.5); MEAN CORPUSCULAR VOLUME 97.9 FL (78-98); MEAN PLATELET VOLUME 7.8 FL (7.4-10.4); MONOCYTES # (AUTO) 1.4 X10'3 (0-0.9); MONOCYTES % (AUTO) 11.1 % (2-12); NEUTROPHILS % (AUTO) 84.9 % (42-75); PLATELET COUNT 512 X10'3 (140-440); RED CELL DISTRIBUTION WIDTH 15.4 % (11.5-14.5); WHITE BLOOD COUNT 12.9 X10'3 (4.5-11.0)
[2022-11-15 14:59] LABS: ALANINE AMINOTRANSFERASE 11 U/L (12-78); ALBUMIN/GLOBULIN RATIO 0.6 (1.1-1.5); ALKALINE PHOSPHATASE 83 IU/L (46-116); ANION GAP 16 (8-16); ASPARTATE AMINO TRANSFERASE 21 U/L (10-37); BILIRUBIN,TOTAL 0.4 MG/DL (0.1-1.0); BLOOD UREA NITROGEN 27 MG/DL (7-18); BUN/CREATININE RATIO 26.7 (6.6-38.0); CALCIUM 9.5 MG/DL (8.5-10.1); CHLORIDE 93 MMOL/L (99-107); CREATININE 1.01 MG/DL (0.40-0.90); GLUCOSE 84 MG/DL (70-104); SODIUM 137 MMOL/L (135-145); TOTAL CARBON DIOXIDE 28.1 MMOL/L (24-32); TOTAL PROTEIN 8.2 G/DL (6.4-8.2); eGFR 53 ML/MIN
[2022-11-15 15:05] LABS: POTASSIUM 3.4 MMOL/L (3.5-5.1)
[2022-11-15] MEDS ORDERED: furosemide 20MG tablet PO ONE (15:25)
[2022-11-15] MEDS ORDERED: PRED20TA PO (15:57)
[2022-11-15] MEDS ORDERED: AZIT-21 PO (15:57)
[2022-11-15 16:32] VITALS: BP 161/66
== END 2022-11-15 16:34 | disposition home or self-care (01) ==
LOC: ER 12:42
DX: J44.1 Chronic obstructive pulmonary disease with (acute) exacerbation (principal); E78.00 Pure hypercholesterolemia, unspecified; J44.9 Chronic obstructive pulmonary disease, unspecified; Z90.49 Acquired absence of other specified parts of digestive tract; Z88.1 Allergy status to other antibiotic agents; Z79.899 Other long term (current) drug therapy
CPT/HCPCS: 36415; 71045; 80053; 83880; 84484; 85025; 93005; 94640; 99285; J7512; 94760

== ENCOUNTER 2024-04-29 12:22 | Emergency (ER) | payer MEDICARE, MEDICAID ==
[~2024-04-29] VITALS: Ht 157.5 cm; Wt 104.0 kg
[~2024-04-29 12:22] MED LIST changes: +ACET-1008 PO; +ALBU18HF2; -ALBU2.5V10; +DILT180C66 PO; -FLUT1AER PO; +FLUT1BLS16 INH; +FOLI0.4T14 PO; +HYDR-3964 PO; +LOPE2CAP PO; +MULT-25 PO; +PANT40TA54 PO; +SERT-432 PO
[2024-04-29 13:26] LABS: BASOPHILS % (AUTO) 0.3 % (0-1); EOSINOPHILS # (AUTO) 0.2 X10'3 (0-0.9); EOSINOPHILS % (AUTO) 2.9 % (0-6); HEMATOCRIT 30.1 % (35.0-45.0); LYMPHOCYTES # (AUTO) 0.6 X10'3 (1.1-4.8); LYMPHOCYTES % (AUTO) 8.6 % (21-51); MEAN CORPUSCULAR HEMOGLOBIN 36.7 PG (27.0-31.0); MEAN CORPUSCULAR HGB CONC 33.4 g/dL (33.0-36.5); MEAN CORPUSCULAR VOLUME 109.9 FL (78-98); MEAN PLATELET VOLUME 8.3 FL (7.4-10.4); MONOCYTES # (AUTO) 0.9 X10'3 (0-0.9); MONOCYTES % (AUTO) 13.4 % (2-12); NEUTROPHILS # (AUTO) 5.1 X10'3 (1.8-7.7); NEUTROPHILS % (AUTO) 74.8 % (42-75); PLATELET COUNT 374 X10'3 (140-440); RED BLOOD COUNT 2.73 X10'6 (4.20-5.60); RED CELL DISTRIBUTION WIDTH 17.6 % (11.5-14.5); WHITE BLOOD COUNT 6.8 X10'3 (4.5-11.0)
[2024-04-29 13:29] LABS: ALANINE AMINOTRANSFERASE 15 U/L (12-78); ALBUMIN 2.7 G/DL (3.4-5.0); ALBUMIN/GLOBULIN RATIO 0.7 (1.1-1.5); ALKALINE PHOSPHATASE 65 IU/L (46-116); ANION GAP 9 (8-16); ASPARTATE AMINO TRANSFERASE 15 U/L (10-37); BILIRUBIN,TOTAL 0.3 MG/DL (0.1-1.0); BLOOD UREA NITROGEN 5 MG/DL (7-18); BUN/CREATININE RATIO 5.7 (10.0-20.0); CALCIUM 7.7 MG/DL (8.5-10.1); CHLORIDE 107 MMOL/L (99-107); CREATININE 0.88 MG/DL (0.40-0.90); GLUCOSE 100 MG/DL (70-104); POTASSIUM 3.5 MMOL/L (3.5-5.1); SODIUM 143 MMOL/L (135-145); TOTAL CARBON DIOXIDE 26.8 MMOL/L (24-32); TOTAL PROTEIN 6.6 G/DL (6.4-8.2); eCRCL 39 ML/MIN; eGFR 62 ML/MIN
[2024-04-29] MEDS: normal saline 1000ML IV soln IVB ONE (14:20)
[2024-04-29] MEDS ORDERED: CEPH-585 PO (14:27)
[2024-04-29] MEDS ORDERED: PROB1TAB2 PO (14:27)
[2024-04-29] MEDS: ketorolac trometh 15mg/ml vial 15 MG/ML ML IV ONE (15:25)
--- NOTE | 2024-04-29 16:23 | NUR ---
22g iv removed from right hand.
[2024-04-29 16:36] VITALS: BP 132/63; PULSE 101; RESP 18; TEMP 97.1; O2SAT 93
== END 2024-04-29 16:40 | disposition home or self-care (01) ==
LOC: ER 12:23
DX: M10.9 Gout, unspecified (principal); M79.672 Pain in left foot; I48.91 Unspecified atrial fibrillation; E78.00 Pure hypercholesterolemia, unspecified; J44.9 Chronic obstructive pulmonary disease, unspecified; Z88.1 Allergy status to other antibiotic agents; Z88.2 Allergy status to sulfonamides; Z79.899 Other long term (current) drug therapy; Z79.82 Long term (current) use of aspirin; Z79.51 Long term (current) use of inhaled steroids; Z79.2 Long term (current) use of antibiotics; Z90.710 Acquired absence of both cervix and uterus; Z72.89 Other problems related to lifestyle; Z86.718 Personal history of other venous thrombosis and embolism
CPT/HCPCS: 36415; 71045; 73630; 80053; 83605; 84145; 84484; 85025; 87040; 93005; 96374; 99285; A4615; J1885; J7030

== ENCOUNTER 2024-06-16 15:52 | Inpatient (IN) | payer MEDICARE, MEDICAID ==
[~2024-06-16] VITALS: Ht 157.5 cm; Wt 55.7 kg
[~2024-06-16 15:52] MED LIST changes: +CEPH-585 PO; +PROB1TAB2 PO
[2024-06-16] MEDS ORDERED: azithromycin/NS 500mg/250ml 250 ML IV ONE (15:55)
[2024-06-16] MEDS: albuterol 2.5 MG/3 ML nebule NEB ONE ×2 (16:00→16:17)
[2024-06-16] MEDS: ipratropium/albuterol 3ml nebule NEB STA (16:12)
[2024-06-16 16:13] VITALS: PULSE 149; RESP 18; O2SAT 89
[2024-06-16] MEDS: methylPREDNISolone sod succ 125mg/2ml vial IV ONE (16:18)
[2024-06-16] MEDS: CefTRIAXone/D5W-Rocephin 1gm 50 ML IV ONE (16:18)
[2024-06-16] MEDS: acetaminophen 325mg tablet PO ONE (16:18)
[2024-06-16] MEDS: normal saline 1000ml 1,000 ML IV ONE (16:19)
[2024-06-16 16:38] LABS: HEMATOCRIT 33.5 % (35.0-45.0); HEMOGLOBIN 11.6 g/dl (12.0-16.0); MEAN CORPUSCULAR HEMOGLOBIN 37.4 PG (27.0-31.0); WHITE BLOOD COUNT 7.3 X10'3 (4.5-11.0)
[2024-06-16 16:40] LABS: ALANINE AMINOTRANSFERASE 23 U/L (12-78); ALBUMIN 3.1 G/DL (3.4-5.0); ALBUMIN/GLOBULIN RATIO 0.7 (1.1-1.5); ALKALINE PHOSPHATASE 67 IU/L (46-116); ANION GAP 13 (8-16); ASPARTATE AMINO TRANSFERASE 30 U/L (10-37); BASOPHILS % (AUTO) 0.1 % (0-1); BILIRUBIN,TOTAL 1.3 MG/DL (0.1-1.0); BLOOD UREA NITROGEN 24 MG/DL (7-18); BUN/CREATININE RATIO 22.2 (10.0-20.0); CALCIUM 8.6 MG/DL (8.5-10.1); CHLORIDE 87 MMOL/L (99-107); CREATININE 1.08 MG/DL (0.40-0.90); EOSINOPHILS % (AUTO) 0.1 % (0-6); GLUCOSE 110 MG/DL (70-104); LYMPHOCYTES # (AUTO) 0.3 X10'3 (1.1-4.8); LYMPHOCYTES % (AUTO) 3.6 % (21-51); MEAN CORPUSCULAR HGB CONC 34.6 g/dL (33.0-36.5); MEAN CORPUSCULAR VOLUME 108.1 FL (78-98); MEAN PLATELET VOLUME 8.4 FL (7.4-10.4); MONOCYTES # (AUTO) 0.2 X10'3 (0-0.9); MONOCYTES % (AUTO) 2.7 % (2-12); NEUTROPHILS # (AUTO) 6.8 X10'3 (1.8-7.7); NEUTROPHILS % (AUTO) 93.5 % (42-75); PLATELET COUNT 362 X10'3 (140-440); POTASSIUM 3.2 MMOL/L (3.5-5.1); RED CELL DISTRIBUTION WIDTH 16.9 % (11.5-14.5); SODIUM 131 MMOL/L (135-145); TOTAL CARBON DIOXIDE 30.7 MMOL/L (24-32); TOTAL PROTEIN 7.3 G/DL (6.4-8.2); eCRCL 29 ML/MIN; eGFR 49 ML/MIN
[2024-06-16 16:59] VITALS: PULSE 139; RESP 20; O2SAT 95
[2024-06-16] MEDS: azithromycin/NS 500mg/250ml 250 ML IV ONE (17:10)
[2024-06-16] MEDS ORDERED: magnesium Cl slow-release 64mg tablet PO PRN (17:30)
[2024-06-16] MEDS ORDERED: potassium Cl 40MEQ/1/2NS 520ml 520 ML IV PRN (17:30)
[2024-06-16] MEDS ORDERED: magnesium hydroxide 30ml (MOM) UD suspension PO PRN (17:30)
[2024-06-16] MEDS ORDERED: acetaminophen 325mg tablet PO PRN ×2 (17:30)
[2024-06-16] MEDS ORDERED: potassium Cl 20 mEq SR tablet PO PRN (17:30)
[2024-06-16] MEDS: diltiazem 5mg/ml 5ml inj. IV ONE (17:40)
[2024-06-16] MEDS: ondansetron/PF 4mg/2ml inj IV PRN (18:34)
[2024-06-16] MEDS: morphine 2 MG/ML inj. syringe IV PRN (18:35)
[2024-06-16] MEDS: metoprolol succinate 25mg (24-HOUR) SR. Tablet PO SCH (18:45)
[2024-06-16 19:15] LABS: OSMOLALITY 277 MOSM/K (280-300)
[2024-06-16 19:16] LABS: HEMOGLOBIN A1C 4.2 % (4.5-6.2)
[2024-06-16] MEDS: azithromycin 250mg tablet PO ONE (19:20)
[2024-06-16] MEDS: apixaban 2.5mg tablet PO SCH (19:20)
[2024-06-16] MEDS: folic acid 1mg tablet PO ONE (19:20)
[2024-06-16] MEDS: normal saline 1000ml 1,000 ML IV SCH (19:26)
[2024-06-16] MEDS: methylPREDNISolone sod succ 125mg/2ml vial IV SCH (19:39)
[2024-06-16] MEDS: ipratropium/albuterol 3ml nebule NEB SCH (19:53)
[2024-06-16 19:56] VITALS: PULSE 104; RESP 16; O2SAT 94
[2024-06-16 20:01] VITALS: PULSE 108; RESP 20
[2024-06-16] MEDS: K and/or MAG REPLACEMENT MC SCH (20:36)
[2024-06-16] MEDS: potassium Cl 20 mEq SR tablet PO PRN (20:46)
[2024-06-16 23:16] VITALS: PULSE 105; RESP 16; O2SAT 96
[2024-06-16 23:23] VITALS: PULSE 103; RESP 20
[2024-06-17] VITALS (18 sets, daily range): BP systolic 92–99; BP diastolic 41–48; PULSE 83–150; RESP 16–21; TEMP 97.3–98.9; O2SAT 89–93
[2024-06-17] MEDS: mag hydrox/Alum hydrox/simeth 30ml oral suspension PO PRN (00:50)
[2024-06-17 02:42] LABS: HEMOGLOBIN 10.2 g/dl (12.0-16.0); MEAN CORPUSCULAR HEMOGLOBIN 37.1 PG (27.0-31.0); MEAN CORPUSCULAR HGB CONC 34.1 g/dL (33.0-36.5); MEAN CORPUSCULAR VOLUME 108.6 FL (78-98); MEAN PLATELET VOLUME 8.5 FL (7.4-10.4); PLATELET COUNT 241 X10'3 (140-440); RED BLOOD COUNT 2.76 X10'6 (4.20-5.60); WHITE BLOOD COUNT 1.4 X10'3 (4.5-11.0)
[2024-06-17] MEDS: methylPREDNISolone sod succ 125mg/2ml vial IV SCH ×2 (02:48→12:00)
[2024-06-17 02:50] LABS: ALANINE AMINOTRANSFERASE 13 U/L (12-78); ALBUMIN 2.3 G/DL (3.4-5.0); ALBUMIN/GLOBULIN RATIO 0.6 (1.1-1.5); ALKALINE PHOSPHATASE 32 IU/L (46-116); ANION GAP 9 (8-16); ASPARTATE AMINO TRANSFERASE 22 U/L (10-37); BILIRUBIN,TOTAL 0.6 MG/DL (0.1-1.0); BLOOD UREA NITROGEN 25 MG/DL (7-18); BUN/CREATININE RATIO 21.6 (10.0-20.0); CALCIUM 7.2 MG/DL (8.5-10.1); CHLORIDE 97 MMOL/L (99-107); CREATININE 1.16 MG/DL (0.40-0.90); GLUCOSE 138 MG/DL (70-104); POTASSIUM 3.3 MMOL/L (3.5-5.1); SODIUM 134 MMOL/L (135-145); TOTAL CARBON DIOXIDE 27.7 MMOL/L (24-32); eCRCL 27 ML/MIN; eGFR 45 ML/MIN
[2024-06-17 02:53] LABS: MAGNESIUM 0.9 MG/DL (1.5-2.4)
[2024-06-17] MEDS: magnesium sulf-water 2g/50mL 50 ML IV PRN (04:11)
[2024-06-17 06:17] LABS: TOTAL CELLS COUNTED 100
[2024-06-17 06:20] LABS: ANISOCYTOSIS 1+; PLATELET ESTIMATE NORMAL; TOXIC VACUOLATION 1+
[2024-06-17 06:21] LABS: STOMATOCYTES 2+
[2024-06-17] MEDS: CefTRIAXone/D5W-Rocephin 1gm 50 ML IV SCH (08:07)
[2024-06-17] MEDS: normal saline 1000ml 1,000 ML IV ONE (08:53)
[2024-06-17] MEDS: magnesium sulf-water 4G/100mL 100 ML IV PRN (08:54)
[2024-06-17] MEDS ORDERED: traZODone 50mg tablet PO PRN (09:35)
[2024-06-17] MEDS: ergocalciferol (vit D2) capsule 50,000 UNITS (1,250mcg) CAPSULE PO SCH (09:35)
[2024-06-17] MEDS: metoprolol succinate 25mg (24-HOUR) SR. Tablet PO SCH (10:45)
[2024-06-17] MEDS: folic acid 0.4mg tablet PO SCH (11:30)
[2024-06-17] MEDS: azithromycin 250mg tablet PO ONE (11:31)
[2024-06-17] MEDS: HYDROchlorothiazide 12.5mg capsule PO SCH (11:31)
[2024-06-17] MEDS: multivitamins, therapeutics tablet PO SCH (11:32)
[2024-06-17] MEDS: aspirin 81mg tab.chew PO SCH (11:32)
[2024-06-17] MEDS: sertraline 25mg tablet PO SCH (11:37)
[2024-06-17] MEDS ORDERED: ipratropium/albuterol 3ml nebule NEB PRN (12:00)
[2024-06-17] MEDS: pantoprazole 40mg Tablet.DR PO SCH (20:09)
[2024-06-17] MEDS: ferrous sulfate 325mg tablet PO SCH (20:10)
[2024-06-17] MEDS: HYDROcodone/acetaminophen 10/325mg tab PO PRN (20:13)
[2024-06-17] MEDS: diltiazem CD 120mg capsule (once-daily) PO ONE (23:11)
[2024-06-18] VITALS (29 sets, daily range): BP systolic 90–112; BP diastolic 41–56; PULSE 74–118; RESP 11–24; TEMP 96.6–97.9; O2SAT 81–95
[2024-06-18 06:55] LABS: BASOPHILS % (AUTO) 0.1 % (0-1); EOSINOPHILS % (AUTO) 0.1 % (0-6); HEMATOCRIT 26.1 % (35.0-45.0); HEMOGLOBIN 8.7 g/dl (12.0-16.0); LYMPHOCYTES # (AUTO) 0.1 X10'3 (1.1-4.8); LYMPHOCYTES % (AUTO) 2.5 % (21-51); MEAN CORPUSCULAR HGB CONC 33.6 g/dL (33.0-36.5); MEAN CORPUSCULAR VOLUME 110.3 FL (78-98); MEAN PLATELET VOLUME 9.1 FL (7.4-10.4); MONOCYTES # (AUTO) 0.1 X10'3 (0-0.9); NEUTROPHILS # (AUTO) 5.4 X10'3 (1.8-7.7); NEUTROPHILS % (AUTO) 95.3 % (42-75); PLATELET COUNT 216 X10'3 (140-440); RED BLOOD COUNT 2.36 X10'6 (4.20-5.60); RED CELL DISTRIBUTION WIDTH 16.7 % (11.5-14.5); WHITE BLOOD COUNT 5.7 X10'3 (4.5-11.0)
[2024-06-18 07:21] LABS: ALANINE AMINOTRANSFERASE 18 U/L (12-78); ALBUMIN 1.9 G/DL (3.4-5.0); ALBUMIN/GLOBULIN RATIO 0.5 (1.1-1.5); ALKALINE PHOSPHATASE 24 IU/L (46-116); ANION GAP 9 (8-16); ASPARTATE AMINO TRANSFERASE 41 U/L (10-37); BILIRUBIN,TOTAL 0.4 MG/DL (0.1-1.0); BLOOD UREA NITROGEN 34 MG/DL (7-18); BUN/CREATININE RATIO 25.4 (10.0-20.0); CALCIUM 7.2 MG/DL (8.5-10.1); CHLORIDE 96 MMOL/L (99-107); CREATININE 1.34 MG/DL (0.40-0.90); GLUCOSE 102 MG/DL (70-104); POTASSIUM 3.6 MMOL/L (3.5-5.1); SODIUM 129 MMOL/L (135-145); TOTAL CARBON DIOXIDE 24.3 MMOL/L (24-32); TOTAL PROTEIN 5.7 G/DL (6.4-8.2); eCRCL 23 ML/MIN; eGFR 38 ML/MIN
[2024-06-18] MEDS ORDERED: diltiazem CD 180mg cap (once-daily) PO SCH (08:00)
[2024-06-18] MEDS ORDERED: TRELEGY ELLIPTA IH SCH (08:00)
[2024-06-18 08:12] LABS: TOTAL CELLS COUNTED 100
[2024-06-18 08:13] LABS: ANISOCYTOSIS 1+; PLATELET ESTIMATE NORMAL; POLYCHROMASIA 1+; STOMATOCYTES 1+; TOXIC VACUOLATION 1+
[2024-06-18] MEDS: diltiazem CD 120mg capsule (once-daily) PO SCH (08:54)
[2024-06-18] MEDS: pantoprazole 40 MG vial IV SCH (13:15)
[2024-06-18] MEDS: azithromycin 250mg tablet PO ONE (13:47)
[2024-06-18 16:23] LABS: ABG BASE EXCESS -6.2 mmol/L (-2.0-3.0); ABG OXYGEN SATURATION 86.3 % (94.0-98.0); ABG PCO2 (T) 35.1 mmHg (32.0-45.0); ABG PH (T) 7.347 (7.350-7.450); ALLEN'S TEST POSITIVE; FCOHb 0.3 % (0.5-1.5); FHHb 13.6 % (0.0-5.0); FLOW 15 L/min; FMetHb 0.3 % (0.0-1.5); FO2Hb 85.8 % (94.0-98.0); MODE HIGH FLOW; PATIENT TEMPERATURE 36.2; TOTAL HEMOGLOBIN 9.2 G/dl (12.0-16.0)
[2024-06-18] MEDS: VANCOmycin 1250MG/NS 250ml Bag 250 ML IV ONE (16:30)
[2024-06-18] MEDS: furosemide 40mg/4ml inj IV ONE (16:31)
[2024-06-18] MEDS: normal saline 1000ml 1,000 ML IV ONE ×2 (16:42)
[2024-06-18] MEDS: furosemide 40mg/4ml inj IV SCH (20:00)
[2024-06-18] MEDS: lactobacillus rhamnosus 10,000 MMU CELLS/CAPSULE PO SCH (20:38)
[2024-06-18] MEDS: furosemide 20 MG/2 ML vial IV ONE (22:12)
[2024-06-19] VITALS (24 sets, daily range): BP systolic 92–125; BP diastolic 42–60; PULSE 72–94; RESP 11–24; TEMP 97–97.9; O2SAT 90–96
[2024-06-19] MEDS: piperacillin/tazo 3.375gm/50ml 50 ML IV SCH (00:07)
[2024-06-19 06:06] LABS: BASOPHILS % (AUTO) 0 % (0-1); EOSINOPHILS % (AUTO) 0 % (0-6); HEMATOCRIT 24.4 % (35.0-45.0); LYMPHOCYTES # (AUTO) 0.2 X10'3 (1.1-4.8); LYMPHOCYTES % (AUTO) 1.9 % (21-51); MEAN CORPUSCULAR HEMOGLOBIN 36.1 PG (27.0-31.0); MEAN CORPUSCULAR HGB CONC 32.8 g/dL (33.0-36.5); MEAN CORPUSCULAR VOLUME 109.9 FL (78-98); MONOCYTES # (AUTO) 0.3 X10'3 (0-0.9); MONOCYTES % (AUTO) 2.1 % (2-12); NEUTROPHILS # (AUTO) 12.8 X10'3 (1.8-7.7); PLATELET COUNT 225 X10'3 (140-440); RED BLOOD COUNT 2.22 X10'6 (4.20-5.60); RED CELL DISTRIBUTION WIDTH 16.4 % (11.5-14.5); WHITE BLOOD COUNT 13.4 X10'3 (4.5-11.0)
[2024-06-19 06:43] LABS: ALANINE AMINOTRANSFERASE 17 U/L (12-78); ALBUMIN 1.9 G/DL (3.4-5.0); ALBUMIN/GLOBULIN RATIO 0.5 (1.1-1.5); ALKALINE PHOSPHATASE 44 IU/L (46-116); ANION GAP 15 (8-16); ASPARTATE AMINO TRANSFERASE 19 U/L (10-37); BILIRUBIN,TOTAL 0.4 MG/DL (0.1-1.0); BLOOD UREA NITROGEN 38 MG/DL (7-18); BUN/CREATININE RATIO 27.5 (10.0-20.0); CALCIUM 7.6 MG/DL (8.5-10.1); CHLORIDE 93 MMOL/L (99-107); CREATININE 1.38 MG/DL (0.40-0.90); GLUCOSE 98 MG/DL (70-104); MAGNESIUM 2.6 MG/DL (1.5-2.4); POTASSIUM 3.4 MMOL/L (3.5-5.1); SODIUM 128 MMOL/L (135-145); TOTAL CARBON DIOXIDE 19.6 MMOL/L (24-32); TOTAL PROTEIN 5.8 G/DL (6.4-8.2); eCRCL 25 ML/MIN; eGFR 37 ML/MIN
[2024-06-19] MEDS ORDERED: magnesium sulf-water 2g/50mL 50 ML IV PRN (17:45)
[2024-06-19] MEDS ORDERED: magnesium sulf-water 4G/100mL 100 ML IV PRN (17:45)
[2024-06-19] MEDS ORDERED: potassium Cl 40MEQ/1/2NS 520ml 520 ML IV PRN (17:45)
[2024-06-19] MEDS ORDERED: magnesium Cl slow-release 64mg tablet PO PRN (17:45)
[2024-06-19] MEDS: potassium Cl 20 mEq SR tablet PO PRN (17:52)
[2024-06-19] MEDS: vancomycin inj 500 MG in normal saline 100ml IV soln 100 ML IV SCH (21:49)
[2024-06-20] VITALS (23 sets, daily range): BP systolic 93–113; BP diastolic 43–57; PULSE 78–122; RESP 13–22; TEMP 96.8–98.3; O2SAT 89–96
[2024-06-20 07:13] LABS: ALANINE AMINOTRANSFERASE 14 U/L (12-78); ALBUMIN 1.8 G/DL (3.4-5.0); ALBUMIN/GLOBULIN RATIO 0.5 (1.1-1.5); ALKALINE PHOSPHATASE 49 IU/L (46-116); ANION GAP 8 (8-16); ASPARTATE AMINO TRANSFERASE 16 U/L (10-37); BILIRUBIN,TOTAL 0.5 MG/DL (0.1-1.0); BLOOD UREA NITROGEN 33 MG/DL (7-18); CALCIUM 7.7 MG/DL (8.5-10.1); CHLORIDE 92 MMOL/L (99-107); CREATININE 1.32 MG/DL (0.40-0.90); GLUCOSE 123 MG/DL (70-104); MAGNESIUM 1.9 MG/DL (1.5-2.4); POTASSIUM 3.1 MMOL/L (3.5-5.1); SODIUM 129 MMOL/L (135-145); TOTAL CARBON DIOXIDE 29.5 MMOL/L (24-32); TOTAL PROTEIN 5.8 G/DL (6.4-8.2); eCRCL 26 ML/MIN; eGFR 39 ML/MIN
[2024-06-20 07:30] LABS: HEMATOCRIT 22.4 % (35.0-45.0); HEMOGLOBIN 7.7 g/dl (12.0-16.0); MEAN CORPUSCULAR HEMOGLOBIN 36.6 PG (27.0-31.0); MEAN CORPUSCULAR HGB CONC 34.2 g/dL (33.0-36.5); MEAN CORPUSCULAR VOLUME 107.3 FL (78-98); MEAN PLATELET VOLUME 9.1 FL (7.4-10.4); PLATELET COUNT 231 X10'3 (140-440); RED BLOOD COUNT 2.09 X10'6 (4.20-5.60); RED CELL DISTRIBUTION WIDTH 16.5 % (11.5-14.5); WHITE BLOOD COUNT 22.7 X10'3 (4.5-11.0)
[2024-06-20] MEDS: cyanocobalamin 500mcg tablet PO SCH (07:52)
[2024-06-20] MEDS: guaiFENesin ER 600mg tablet PO SCH (08:55)
[2024-06-20 09:05] LABS: ANISOCYTOSIS 1+; HYPOCHROMASIA 1+; PLATELET ESTIMATE NORMAL; TOTAL CELLS COUNTED 100
[2024-06-20 09:06] LABS: STOMATOCYTES FEW; TEAR DROP CELLS FEW
[2024-06-20] MEDS: cyanocobalamin 1,000 mcg/ml inj IM ONE (14:43)
[2024-06-20] MEDS: LIDOcaine 5% patch TP SCH (16:42)
[2024-06-20] MEDS ORDERED: vancomycin/NS 1 GM ADD-VANTAGE 250 ML IV SCH (17:00)
[2024-06-20] MEDS: morphine 2 MG/ML inj. syringe IV PRN (20:05)
[2024-06-21] VITALS (18 sets, daily range): BP systolic 110–128; BP diastolic 51–73; PULSE 63–150; RESP 14–21; TEMP 97.4–98.6; O2SAT 88–99
[2024-06-21 07:12] LABS: HEMOGLOBIN 7.6 g/dl (12.0-16.0); MEAN CORPUSCULAR HEMOGLOBIN 35.6 PG (27.0-31.0); MEAN CORPUSCULAR HGB CONC 33.2 g/dL (33.0-36.5); MEAN PLATELET VOLUME 8.7 FL (7.4-10.4); PLATELET COUNT 261 X10'3 (140-440); RED BLOOD COUNT 2.15 X10'6 (4.20-5.60); RED CELL DISTRIBUTION WIDTH 16.4 % (11.5-14.5)
[2024-06-21 07:13] LABS: ALANINE AMINOTRANSFERASE 13 U/L (12-78); ALBUMIN 1.8 G/DL (3.4-5.0); ALBUMIN/GLOBULIN RATIO 0.4 (1.1-1.5); ALKALINE PHOSPHATASE 59 IU/L (46-116); ANION GAP 4 (8-16); ASPARTATE AMINO TRANSFERASE 15 U/L (10-37); BILIRUBIN,TOTAL 0.6 MG/DL (0.1-1.0); BLOOD UREA NITROGEN 33 MG/DL (7-18); CHLORIDE 92 MMOL/L (99-107); CREATININE 1.18 MG/DL (0.40-0.90); GLUCOSE 150 MG/DL (70-104); SODIUM 132 MMOL/L (135-145); TOTAL CARBON DIOXIDE 36.4 MMOL/L (24-32); TOTAL PROTEIN 5.9 G/DL (6.4-8.2); eCRCL 29 ML/MIN; eGFR 44 ML/MIN
[2024-06-21 07:15] LABS: WHITE BLOOD COUNT 25.8 X10'3 (4.5-11.0)
[2024-06-21 07:18] LABS: POTASSIUM 2.7 MMOL/L (3.5-5.1)
[2024-06-21] MEDS: potassium Cl 20 mEq SR tablet PO PRN (07:53)
[2024-06-21 08:44] LABS: ANISOCYTOSIS 1+; PLATELET ESTIMATE NORMAL; TOTAL CELLS COUNTED 100
[2024-06-21 08:45] LABS: HYPOCHROMASIA 1+; STOMATOCYTES 2+
[2024-06-21] MEDS: metoprolol tartrate 1mg/ml inj IV PRN (15:08)
[2024-06-21] MEDS ORDERED: VANCOMYCIN LEVEL IV ONE (16:30)
== END 2024-06-21 17:32 | DRG 871 ==
LOC: ER 15:53 → ED HOLD 17:33 → PCU 3S 06-17 14:03
PROVIDERS: ADMIT Family Medicine; ATTEND Family Medicine
PROC: 5A0935A Assistance with Respiratory Ventilation, Less than 24 Consecutive Hours, High Flow/Velocity Cannula (ICD-10-PCS; principal; 2024-06-17)
PROC: 5A09357 Assistance with Respiratory Ventilation, Less than 24 Consecutive Hours, Continuous Positive Airway Pressure (ICD-10-PCS; 2024-06-18)
PROC: 5A0945A Assistance with Respiratory Ventilation, 24-96 Consecutive Hours, High Flow/Velocity Cannula (ICD-10-PCS; 2024-06-18)
DX: A41.9 Sepsis, unspecified organism (principal); J18.9 Pneumonia, unspecified organism; J96.01 Acute respiratory failure with hypoxia; J44.1 Chronic obstructive pulmonary disease with (acute) exacerbation; E87.1 Hypo-osmolality and hyponatremia; E44.1 Mild protein-calorie malnutrition; J44.0 Chronic obstructive pulmonary disease with (acute) lower respiratory infection; N17.9 Acute kidney failure, unspecified; E87.20 Acidosis, unspecified; Z20.822 Contact with and (suspected) exposure to COVID-19; Z66 Do not resuscitate; E83.42 Hypomagnesemia; N18.9 Chronic kidney disease, unspecified; E11.22 Type 2 diabetes mellitus with diabetic chronic kidney disease; Z68.22 Body mass index [BMI] 22.0-22.9, adult; I12.9 Hypertensive chronic kidney disease with stage 1 through stage 4 chronic kidney disease, or unspecified chronic kidney disease; F32.A Depression, unspecified; E78.00 Pure hypercholesterolemia, unspecified; T38.0X5A Adverse effect of glucocorticoids and synthetic analogues, initial encounter; I48.91 Unspecified atrial fibrillation; E87.6 Hypokalemia; Z88.8 Allergy status to other drugs, medicaments and biological substances; Z88.2 Allergy status to sulfonamides; Z79.01 Long term (current) use of anticoagulants; Z90.710 Acquired absence of both cervix and uterus; Z87.891 Personal history of nicotine dependence; Y92.89 Other specified places as the place of occurrence of the external cause; D51.3 Other dietary vitamin B12 deficiency anemia
CPT/HCPCS: 36415; 36600; 71045; 71250; 80053; 82570; 82607; 82803; 83036; 83605; 83735; 83930; 83935; 84145; 84300; 85007; 85018; 85025; 87040; 87811; 93005; 94640; 94660; 94760; 96365; 97110; 97161; 97530; 99291; G0378; J0456; J0696; J1940; J2270; J2405; J2470; J2543; J2919; J3370; J3420; J3475; J3490; J7030

== ENCOUNTER 2024-07-13 12:48 | Emergency (ER) | payer MEDICARE, MEDICAID ==
[~2024-07-13] VITALS: Ht 160 cm; Wt 45.9 kg
[2024-07-13] MEDS: magnesium sulf-water 2g/50mL 50 ML IV ONE (13:09)
[2024-07-13] MEDS: ondansetron/PF 4mg/2ml inj IV ONE (13:09)
[2024-07-13] MEDS: methylPREDNISolone sod succ 125mg/2ml vial IV ONE (13:09)
[2024-07-13 13:10] VITALS: PULSE 140; RESP 34; O2SAT 92
[2024-07-13] MEDS: albuterol 2.5 MG/3 ML nebule CONTNEB PRN (13:14)
[2024-07-13 13:20] VITALS: PULSE 140; RESP 30; O2SAT 92
[2024-07-13 13:34] LABS: BASOPHILS % (AUTO) 0.1 % (0-1); EOSINOPHILS % (AUTO) 0 % (0-6); HEMATOCRIT 30.2 % (35.0-45.0); HEMOGLOBIN 10.1 g/dl (12.0-16.0); LYMPHOCYTES # (AUTO) 0.2 X10'3 (1.1-4.8); LYMPHOCYTES % (AUTO) 12.6 % (21-51); MEAN CORPUSCULAR HEMOGLOBIN 36.9 PG (27.0-31.0); MEAN CORPUSCULAR HGB CONC 33.4 g/dL (33.0-36.5); MEAN CORPUSCULAR VOLUME 110.3 FL (78-98); MONOCYTES % (AUTO) 1.9 % (2-12); NEUTROPHILS # (AUTO) 1.1 X10'3 (1.8-7.7); NEUTROPHILS % (AUTO) 85.4 % (42-75); PLATELET COUNT 149 X10'3 (140-440); RED BLOOD COUNT 2.74 X10'6 (4.20-5.60); RED CELL DISTRIBUTION WIDTH 15.9 % (11.5-14.5); WHITE BLOOD COUNT 1.3 X10'3 (4.5-11.0)
[2024-07-13 13:45] VITALS: PULSE 123; RESP 31; O2SAT 87
[2024-07-13] MEDS ORDERED: azithromycin/NS 500mg/250ml 250 ML IV ONE (13:55)
[2024-07-13] MEDS ORDERED: CefTRIAXone/D5W-Rocephin 1gm 50 ML IV ONE (13:55)
[2024-07-13 14:03] LABS: ALANINE AMINOTRANSFERASE 90 U/L (12-78); ALBUMIN 2.2 G/DL (3.4-5.0); ALBUMIN/GLOBULIN RATIO 0.6 (1.1-1.5); ALKALINE PHOSPHATASE 73 IU/L (46-116); ANION GAP 21 (8-16); ASPARTATE AMINO TRANSFERASE 51 U/L (10-37); BILIRUBIN,TOTAL 0.7 MG/DL (0.1-1.0); BLOOD UREA NITROGEN 32 MG/DL (7-18); BUN/CREATININE RATIO 24.4 (10.0-20.0); CALCIUM 8.3 MG/DL (8.5-10.1); CHLORIDE 99 MMOL/L (99-107); CREATININE 1.31 MG/DL (0.40-0.90); GLUCOSE 170 MG/DL (70-104); SODIUM 137 MMOL/L (135-145); TOTAL CARBON DIOXIDE 17.4 MMOL/L (24-32); TOTAL PROTEIN 6.1 G/DL (6.4-8.2); eCRCL 24 ML/MIN; eGFR 39 ML/MIN
[2024-07-13] MEDS ORDERED: succinylcholine 20mg/ml inj IV ONE (14:03)
[2024-07-13 14:08] LABS: PRO BRAIN NATRIURETIC PEPTIDE 10102 PG/ML (0-450)
[2024-07-13 14:10] LABS: NUCLEATED RED BLOOD CELLS 1 /100WBC (0-0); TOTAL CELLS COUNTED 100
[2024-07-13 14:11] LABS: PLATELET ESTIMATE NORMAL
[2024-07-13 14:23] VITALS: BP 137/73; PULSE 62; RESP 20
[2024-07-13] MEDS ORDERED: morphine 4 MG/ML inj SYRINge IV PRN (14:25)
[2024-07-13] MEDS ORDERED: ondansetron/PF 4mg/2ml inj IV PRN (14:25)
[2024-07-13] MEDS ORDERED: normal saline 1000ml 1,000 ML IV SCH (14:25)
[2024-07-13] MEDS ORDERED: acetaminophen 325mg tablet PO PRN ×2 (14:25)
[2024-07-13] MEDS ORDERED: magnesium hydroxide 30ml (MOM) UD suspension PO PRN (14:25)
[2024-07-13] MEDS ORDERED: morphine 2 MG/ML inj. syringe IV PRN (14:25)
[2024-07-13] MEDS ORDERED: propofol 1000mg/100ml bottle 100 ML IV SCH (14:30)
[2024-07-13] MEDS ORDERED: albuterol 2.5 MG/3 ML nebule NEB PRN (14:30)
[2024-07-13] MEDS ORDERED: CEFEPIME 2gm in D5W 50mL 50 ML IV SCH (16:00)
[2024-07-13] MEDS ORDERED: ipratropium 0.5 MG/2.5ML nebule IH SCH (16:00)
[2024-07-13] MEDS ORDERED: methylPREDNISolone sod succ 125mg/2ml vial IV SCH (20:00)
[2024-07-13] MEDS ORDERED: VANCOMYCIN 1,500MG inj. 1,500 MG in normal saline 500ml IV soln 300 ML IV SCH (20:00)
[2024-07-13] MEDS ORDERED: famotidine/PF 10 mg/ml inj IV SCH (20:00)
[2024-07-14] MEDS ORDERED: enoxaparin 40mg/0.4ml syringe SUBCUT SCH (08:00)
[2024-07-16] MEDS ORDERED: FURO40TA4 PO (15:10)
[2024-07-16] MEDS ORDERED: FOLI0.4T14 PO (15:10)
[2024-07-16] MEDS ORDERED: PANT-47 PO (15:10)
[2024-07-16] MEDS ORDERED: SERT25TA84 PO (15:10)
[2024-07-16] MEDS ORDERED: ASPI81TA53 PO (15:10)
[2024-07-16] MEDS ORDERED: HYDR-3972 PO (15:10)
[2024-07-16] MEDS ORDERED: FERR325T32 PO (15:10)
[2024-07-16] MEDS ORDERED: DILT-94 PO (15:10)
[2024-07-16] MEDS ORDERED: AMI200T PO (15:10)
[2024-07-16] MEDS ORDERED: METO50TA17 PO (15:10)
[2024-07-16] MEDS ORDERED: HYDR25TA4 PO (15:10)
[2024-07-16] MEDS ORDERED: ATR0.5NEB NEB (15:10)
[2024-07-16] MEDS ORDERED: PRED20TA PO (15:10)
[2024-07-16] MEDS ORDERED: QUE9P PO (15:10)
[2024-07-16] MEDS ORDERED: CYAN500T9 PO (15:10)
[2024-07-16] MEDS ORDERED: ALB0.5UD INH (15:10)
[2024-07-16] MEDS ORDERED: APIX2.5T PO (15:10)
[2024-07-16] MEDS ORDERED: INSU100I8 SQ (15:10)
[2024-07-16] MEDS ORDERED: GUAI-1078 PO (15:10)
[2024-07-16] MEDS ORDERED: LIDO1ADH41 TOP (15:10)
[2024-07-16] MEDS ORDERED: FLUT1BLS4 INH (15:10)
[2024-07-16] MEDS ORDERED: propofol 1000mg/100ml bottle 100 ML IV SCH (15:11)
== END 2024-07-13 14:40 ==
LOC: ER 12:48
DX: J96.90 Respiratory failure, unspecified, unspecified whether with hypoxia or hypercapnia (principal); J44.1 Chronic obstructive pulmonary disease with (acute) exacerbation; E11.9 Type 2 diabetes mellitus without complications; F12.90 Cannabis use, unspecified, uncomplicated; Z88.1 Allergy status to other antibiotic agents; Z88.2 Allergy status to sulfonamides; Z88.8 Allergy status to other drugs, medicaments and biological substances; Z79.899 Other long term (current) drug therapy; Z79.01 Long term (current) use of anticoagulants; Z90.710 Acquired absence of both cervix and uterus
CPT/HCPCS: 71045; 80053; 82800; 83880; 84484; 85007; 85025; 92950; 93005; 94640; 94660; 96365; 96366; 96375; 99291; A7015; C1751; C1758; J2405; J2919; J7040; Z7610; 31500; 94002; 94760